=== PATIENT | female | born 1995 | race Two or more races ===

== ENCOUNTER 2018-03-10 07:00 | Day surgery (SDC) | payer MEDICAID, SELFPAY ==
[2018-03-10] VITALS (7 sets, daily range): BP systolic 111–154; BP diastolic 62–101; PULSE 62–99; RESP 14–18; TEMP 36.4–36.8; O2SAT 4–100; BMI 40.4
--- NOTE | 2018-03-10 08:10 | TONS_PTH ---
PATIENT: LEE RAMOS [place] [facility] [place][id number] AGE/SX: 23/F ROOM: RE03/10/[address]: Dr. Herberth Kohli MD : 1995 BED: DIS: 03/10/2018 SPEC #: [id number] RECD: 03/10/18 10:41 STATUS: OLESYA SHUN #: [id number] LAMONTE: 03/10/18 08:[address]: Herberth Kohli DEPT: SURGICAL PATHOLOGY RECD BY: Lawrence Johnson ENTERED: 03/10/18 11:50 SP TYPE: TONSILS OTHR DR: No Primary Care Phys Tissues: A - Tonsil, NOS B - Tonsil, NOS Procedures: Surgery Specimen Level III HEADER OPERATION: Tonsillectomy PRE-OP DIAGNOSIS: Chronic tonsillitis TISSUE SUBMITTED: A ? Right tonsil, B ? Left tonsil MICROSCOPIC DIAGNOSIS A. Right tonsil, tonsillectomy: Benign lymphoid follicular hyperplasia, consistent with chronic tonsillitis. B. Left tonsil, tonsillectomy: Benign lymphoid follicular hyperplasia, consistent with chronic tonsillitis. Organisms consistent with actinomyces. AM:andre 03/13/18 MICROSCOPIC DESCRIPTION Slides are reviewed. GROSS DESCRIPTION A - Received in formalin labeled with the patient's name and designated right tonsil.? The specimen consists of a tonsil that weighs 4.2 gm and measures 3 x 2 x 1.5 cm. The external surface is pink-gee, smooth, glistening and somewhat lobulated. Focally it is hemorrhagic, granular and bears cautery artifact. Serial cross sections through the tonsil reveal normal tonsillar architecture. Veterinary Laboratory Diagnostician sections are submitted in one cassette. B - Received in formalin labeled with the patient's name and designated left tonsil.? The specimen consists of a tonsil that weighs 4.6 gm and measures 2.5 x 2 x 1.5 cm. The external surface is pink-gee, smooth, glistening and somewhat lobulated. Focally it is hemorrhagic, granular and bears cautery artifact. Serial cross sections through the tonsil reveal normal tonsillar architecture. Veterinary Laboratory Diagnostician sections are submitted in one cassette. / SJ:andre 03/10/18 TC:5 CPT: 78829 x2
[2018-03-10 08:20] LABS: Internal QC Validated? YES +Cl - CLEAR BKGD; Pregnancy, Urine Negative Negative
--- NOTE | 2018-03-10 09:10 | PCM.OPRPT ---
Problem List (1) Chronic tonsillitis Status: Chronic Report of Operation Date of Procedure: 03/10/18 Pre-Operative Diagnosis: Chronic tonsillitis Post-Operative Diagnosis: same Surgery/Procedure Performed:: Tonsillectomy Description of Surgical Findings:: Yosef Arguelles is a 23-year-old female since evaluation of chronic tonsillitis for which she has a long-standing history. She previously attempted a tonsillectomy which was delayed due to and continues to have issues and presents for evaluation for current consideration. Examination ongoing cryptic tonsillar hypertrophy and the above procedure hopes of relief of her chronic discomfort and she was eager to proceed. The risks, alternatives, potential benefits, and complications were discussed at length and any questions answered to the patient and/or caregiver's satisfaction. Witnessed informed consent was obtained in the office, and the patient and/or caregiver was agreeable to proceed. Procedure went as follows: The patient was identified in the preoperative holding, brought to the operating room, was placed under general anesthesia and intubated. When appropriate anesthesia was obtained, the head of bed was rotated and the patient prepped and draped in usual sterile fashion. A Jeremiah Tello mouthgag was then placed and the patient suspended from the [place] stand. The oral cavity examined and is noted to have 3+ cryptic tonsillar hypertrophy. Beginning on the right side the right tonsil was then grasped with a curved tenaculum and dissected from the underlying capsule with monopolar cautery. This was then sent as specimen. Similar procedure was then completed on the contralateral side. The oral and nasal cavities were then irrigated with saline solution, an NG tube was then placed to decompress the stomach. The patient was then returned to anesthesia, revived and extubated having tolerated the procedure well. Type of Anesthesia:: General Anesthesiologist: Herberth Pacheco Special Medications: none Specimen's removed: bilateral tonsils Estimated Blood Loss (mL): 0 mL Fluids Replaced: 1000 mL - Complications none - Admit VTE Documentation VTE Present on Admission: No VTE Mechan Device Prophylaxis: SCD's VTE Pharm Prophylaxis ordered?: No
--- NOTE | 2018-03-10 09:15 | DCINST_ITS ---
Discharge Diet: Soft diet Discharge Activity: Return to Normal Activity, May not drive while taking narcotic pain medications. Call your doctor if your incision/area has: Continuous Slow Oozing, Sudden Increased Bleeding Call your doctor if you observe: Fever of 101 or Higher, Uncontrolled pain Allergies/Adverse Reactions: Allergies acetaminophen [From Percocet] Allergy (Verified 03/09/18 13:12) Hives hydroxyzine [From Vistaril] Allergy (Verified 03/09/18 13:12) Swelling oxycodone [From Percocet] Allergy (Verified 03/09/18 13:12) Hives Medications to take at Discharge Ranitidine HCl [Zantac 75] 75 mg PO DAILY 03/09/18 Primary Care Physician: Care Physician,No Primary [Primary Care Provider] - Test Results: Test results from this visit will be discussed in further detail at your follow- up appointment, if applicable. Please Follow Up With: Herberth Kohli MD When: 2 weeks
[2018-03-10] MEDS: Ondansetron 4 MG/2 ML Vial IV (10:28)
[2018-03-10] MEDS: Acetaminophen 160 MG/5 ML UDC 500 MG PO (11:09)
[2018-03-10] MEDS: Ibuprofen 100 MG/5 ML UDC 600 MG PO (12:21)
== END 2018-03-10 13:24 | disposition home or self-care (01) ==
LOC: SDC 07:01 → AC 07:03
PROVIDERS: Visit Provider Otolaryngology
PROC: (CPT 42826; principal; 2018-03-10 08:00)
DX: J35.01 Chronic tonsillitis (principal); K21.9 Gastro-esophageal reflux disease without esophagitis; F17.200 Nicotine dependence, unspecified, uncomplicated
CPT/HCPCS: 00170; 42826; 81025; 88304; J7120; J2405